=== PATIENT | male | born 1975 | race Caucasian/White ===

== ENCOUNTER 2023-04-24 08:23 | Day surgery (SDC) | payer BC ==
[2023-04-20 11:43] VITALS: BMI 28.1
[2023-04-24] MEDS ORDERED: PROPOFOL 20 ML ONE (08:52)
[2023-04-24 09:27] VITALS: RESP 20; TEMP 97.1
[2023-04-24 09:42] VITALS: BP 102/60; PULSE 75
== END 2023-04-24 09:40 | disposition home or self-care (01) ==
LOC: FASU-ENDO 08:23
PROVIDERS: ATTEND Internal Medicine Gastroenterology
PROC: 0DJD8ZZ Inspection of Lower Intestinal Tract, Via Natural or Artificial Opening Endoscopic (ICD-10-PCS; principal; 2023-04-24 09:00)
DX: Z12.11 Encounter for screening for malignant neoplasm of colon (principal); K57.30 Diverticulosis of large intestine without perforation or abscess without bleeding